=== PATIENT | female | born 1990 | race Caucasian/White ===

== ENCOUNTER 2022-06-01 17:55 | Outpatient (CLI) | payer OTHER ==
[2022-06-01 18:35] VITALS: BP 132/83; PULSE 98; RESP 18; TEMP 97.5
--- NOTE | 2022-06-05 08:26 | P.MSEPDOC ---
Presenting Problems - Arrival Data Date of Arrival on Unit: 06/01/22 Time of Arrival on Unit: 17:55 Mode of Transport: Ambulatory - Complaint OB-Reason for Admission/Chief Complaint: NST Medical History - Information : 2 Para: 0 Term: 0 : 0 Abortions: Spontaneous or Elective: 0 Number of Living Children: 0 - Gestational Age Gestational Age by KATELYNN (wks/days): 33 Weeks and 5 Days - History Complications: GDM Comment: On insulin once daily at bedtime, NST twice weekly Review of Systems - Review of Systems Constitutional: No problems Breast: No problems ENT: No problems Cardiovascular: No problems Respiratory: No problems Gastrointestinal: No problems Genitourinary: No problems Musculoskeletal: No problems Neurological: No problems Skin: No problems Vital Signs - Temperature Temperature: 97.5 F Temperature Source: Temporal Artery Scan - Pulse Right Sitting Brachial Pulse Rate: 98 Pulse Assessment Method: Automatic Cuff - Respirations Respiratory Rate: 18 Oxygen Delivery Method: Room Air O2 Sat by Pulse Oximetry: 98 - Blood Pressure Right Arm Sitting Blood Pressure: 132/83 Blood Pressure Mean: 99 Blood Pressure Source: Automatic Cuff Physician Notification - Physician Notified Physician Notified Date: 06/01/22 Physician Notified Time: 18:35 Physician: Rosenda Monte Order Received: Yes - Notification Comment Comment: Pt with written order for dc home after reactive NST Maternal Triage Index - Maternal Triage Index Presenting for scheduled procedure w/no complaint: Yes - Scheduled/Requesting Priority 5 Scheduled/Requesting Priority 5: Yes Criteria Met for Priority 5: NST twice weekly, reactive today. Disposition - Disposition OB Disposition: Discharge to home Discharge Date: 06/01/22 Discharge Time: 18:32 I agree with the RN Medical Screening Exam: Yes Case reviewed; plan agreed upon as documented in EMR&OBIX.: Yes Diagnosis: GESTATIONAL DIABETES IN , INSULIN CONTROLLED
== END 2022-06-01 18:35 | disposition home or self-care (01) ==
LOC: FBPOP 17:55
PROVIDERS: ATTEND Obstetrics & Gynecology
DX: O24.419 Gestational diabetes mellitus in pregnancy, unspecified control (principal); Z3A.33 33 weeks gestation of pregnancy
CPT/HCPCS: 59025

== ENCOUNTER → 2022-06-08 | Outpatient (CLI) | payer OTHER ==
[2022-06-08 17:49] VITALS: BP 129/80; PULSE 90; RESP 16; TEMP 97.6
--- NOTE | 2022-06-10 09:38 | P.MSEPDOC ---
Presenting Problems - Arrival Data Date of Arrival on Unit: 06/08/22 Time of Arrival on Unit: 16:59 Mode of Transport: Ambulatory - Complaint OB-Reason for Admission/Chief Complaint: NST Comment: with written orders for GDM Medical History - Information : 2 Para: 0 Term: 0 : 0 Abortions: Spontaneous or Elective: 1 Number of Living Children: 0 - Gestational Age Gestational Age by KATELYNN (wks/days): 34 Weeks and 5 Days - History Complications: GDM Review of Systems - Review of Systems Constitutional: No problems Breast: No problems ENT: No problems Cardiovascular: No problems Respiratory: No problems Gastrointestinal: No problems Genitourinary: No problems Musculoskeletal: No problems Neurological: No problems Skin: No problems Vital Signs - Temperature Temperature: 97.6 F Temperature Source: Temporal Artery Scan - Pulse Right Pulse Rate: 90 Pulse Assessment Method: Automatic Cuff - Respirations Respiratory Rate: 16 Oxygen Delivery Method: Room Air O2 Sat by Pulse Oximetry: 98 - Blood Pressure Right Arm Blood Pressure: 129/80 Blood Pressure Mean: 96 Blood Pressure Source: Automatic Cuff Medical Screen Scoring - Assessment - Baby A Baseline FHR: 130 Heart Rate - NICHD Category: Category I (Normal) NST: Reactive Physician Notification - Physician Notified New Order Received: Yes - Notification Comment Comment: Written order to discharge if NST Reactive Maternal Triage Index - Maternal Triage Index Presenting for scheduled procedure w/no complaint: Yes - Scheduled/Requesting Priority 5 Scheduled/Requesting Priority 5: No Disposition - Disposition OB Disposition: Triage, Written follow up instructions reviewed Discharge Date: 06/08/22 Discharge Time: 17:30 I agree with the RN Medical Screening Exam: Yes Case reviewed; plan agreed upon as documented in EMR&OBIX.: Yes Diagnosis: GESTATIONAL DIABETES MELLITUS IN , UNSP CONTROL
== END ==
LOC: FBPOP 16:58
PROVIDERS: ATTEND Obstetrics & Gynecology
DX: O24.419 Gestational diabetes mellitus in pregnancy, unspecified control (principal); Z3A.34 34 weeks gestation of pregnancy
CPT/HCPCS: 59025

== ENCOUNTER 2022-06-16 17:34 | Outpatient (CLI) | payer OTHER ==
--- NOTE | 2022-06-17 17:35 | P.MSEPDOC ---
Presenting Problems - Arrival Data Date of Arrival on Unit: 06/16/22 Time of Arrival on Unit: 17:34 Mode of Transport: Ambulatory - Complaint OB-Reason for Admission/Chief Complaint: NST Comment: pt has weekly nst's due to gest diabetes that is insulin controled Medical History - Information : 2 Para: 0 Term: 0 : 0 Abortions: Spontaneous or Elective: 1 Number of Living Children: 0 - Gestational Age Gestational Age by KATELYNN (wks/days): 35 Weeks and 6 Days Review of Systems - Review of Systems Constitutional: No problems Breast: No problems ENT: No problems Cardiovascular: No problems Respiratory: No problems Gastrointestinal: No problems Genitourinary: No problems Musculoskeletal: No problems Neurological: No problems Skin: No problems Medical Screen Scoring - Assessment - Baby A Baseline FHR: 140 NST: Reactive Physician Notification - Notification Comment Comment: written order to discharge home if there is a reactive NST Maternal Triage Index - Maternal Triage Index Presenting for scheduled procedure w/no complaint: Yes - Scheduled/Requesting Priority 5 Scheduled/Requesting Priority 5: Yes Criteria Met for Priority 5: pt here for weekly nst due to gest diabestes insulin controlled Disposition - Disposition OB Disposition: Discharge to home, Written follow up instructions reviewed Discharge Date: 06/16/22 Discharge Time: 18:15 I agree with the RN Medical Screening Exam: Yes Case reviewed; plan agreed upon as documented in EMR&OBIX.: Yes Diagnosis: GESTATIONAL DIABETES IN THE PUERPERIUM, DIET CONTROLLED
== END 2022-06-16 18:15 | disposition home or self-care (01) ==
LOC: FBPOP 17:34
PROVIDERS: ATTEND Obstetrics & Gynecology
DX: O24.410 Gestational diabetes mellitus in pregnancy, diet controlled (principal); Z3A.35 35 weeks gestation of pregnancy; Z79.4 Long term (current) use of insulin
CPT/HCPCS: 59025

== ENCOUNTER 2022-06-29 12:47 | Outpatient (CLI) | payer OTHER ==
--- NOTE | 2022-06-30 07:05 | P.MSEPDOC ---
Presenting Problems - Arrival Data Date of Arrival on Unit: 06/29/22 Time of Arrival on Unit: 12:47 Mode of Transport: Ambulatory - Complaint OB-Reason for Admission/Chief Complaint: NST Medical History - Information : 2 Para: 0 Term: 0 : 0 Abortions: Spontaneous or Elective: 0 Number of Living Children: 0 - Gestational Age Gestational Age by KATELYNN (wks/days): 37 Weeks and 5 Days - History Complications: GDM Review of Systems - Review of Systems Constitutional: No problems Breast: No problems ENT: No problems Cardiovascular: No problems Respiratory: No problems Gastrointestinal: No problems Genitourinary: No problems Musculoskeletal: No problems Neurological: No problems Skin: No problems Medical Screen Scoring - Assessment - Baby A Baseline FHR: 145 Heart Rate - NICHD Category: Category I (Normal) NST: Reactive Physician Notification - Notification Comment Comment: orders that if NST is reactive may discharge home Maternal Triage Index - Maternal Triage Index Presenting for scheduled procedure w/no complaint: No - Stat/Priority 1 Stat Priority 1: No - Urgent/Priority 2 Urgent Priority 2: No - Prompt/Priority 3 Prompt Priority 3: No - Non-Urgent/Priority 4 Non-Urgent Priority 4: No - Scheduled/Requesting Priority 5 Scheduled/Requesting Priority 5: Yes Criteria Met for Priority 5: NST orders Disposition - Disposition OB Disposition: Discharge to home Discharge Date: 06/29/22 Discharge Time: 13:22 I agree with the RN Medical Screening Exam: Yes Case reviewed; plan agreed upon as documented in EMR&OBIX.: Yes Diagnosis: SUPERVISION OF HIGH RISK , UNSP, THIRD TRIMESTER
== END 2022-06-29 13:22 | disposition home or self-care (01) ==
LOC: FBPOP 12:47
PROVIDERS: ATTEND Obstetrics & Gynecology
DX: O24.419 Gestational diabetes mellitus in pregnancy, unspecified control (principal); Z3A.37 37 weeks gestation of pregnancy
CPT/HCPCS: 59025

== ENCOUNTER 2022-07-05 17:51 | Outpatient (CLI) | payer OTHER ==
[2022-07-05 18:57] VITALS: BP 133/83; PULSE 86; RESP 16; TEMP 97.1
--- NOTE | 2022-07-06 06:52 | P.MSEPDOC ---
Presenting Problems - Arrival Data Date of Arrival on Unit: 07/05/22 Time of Arrival on Unit: 17:51 Mode of Transport: Ambulatory - Complaint OB-Reason for Admission/Chief Complaint: PIH Medical History - Information : 2 Para: 0 - Gestational Age Gestational Age by KATELYNN (wks/days): 38 Weeks and 4 Days Review of Systems - Review of Systems Constitutional: No problems Breast: No problems ENT: No problems Cardiovascular: No problems Respiratory: No problems Gastrointestinal: No problems Genitourinary: No problems Musculoskeletal: No problems Neurological: No problems Skin: No problems Vital Signs - Temperature Temperature: 97.1 F Temperature Source: Temporal Artery Scan - Pulse Pulse Oximetery Pulse Rate: 86 Pulse Assessment Method: Pulse Oximetry - Respirations Respiratory Rate: 16 Oxygen Delivery Method: Room Air O2 Sat by Pulse Oximetry: 98 - Blood Pressure Right Arm Blood Pressure: 133/83 Blood Pressure Mean: 99 Blood Pressure Source: Automatic Cuff Physician Notification - Physician Notified Physician Notified Date: 07/05/22 Physician Notified Time: 18:16 Physician: Mau Maternal Triage Index - Stat/Priority 1 Stat Priority 1: No - Urgent/Priority 2 Urgent Priority 2: No - Prompt/Priority 3 Prompt Priority 3: No - Non-Urgent/Priority 4 Non-Urgent Priority 4: No - Scheduled/Requesting Priority 5 Scheduled/Requesting Priority 5: Yes Criteria Met for Priority 5: patient sent to triage for high blood pressure at home Disposition - Disposition OB Disposition: Discharge to home Discharge Date: 07/05/22 Discharge Time: 18:57 I agree with the RN Medical Screening Exam: Yes Case reviewed; plan agreed upon as documented in EMR&OBIX.: Yes Diagnosis: RELATED CONDITIONS, UNSPECIFIED, THIRD TRIMESTER (Pt presented with compliants of elevated blood pressure on home BP monitor. Blood pressure was normal 2 days ago at [facility] and also is normal now. No evidence of gestational hypertension or pre-eclampsia. To followup tomorrow as scheduled. )
== END 2022-07-05 18:58 ==
LOC: FBPOP 17:51
PROVIDERS: ATTEND Obstetrics & Gynecology
DX: O26.93 Pregnancy related conditions, unspecified, third trimester (principal); Z3A.38 38 weeks gestation of pregnancy; R03.0 Elevated blood-pressure reading, without diagnosis of hypertension
CPT/HCPCS: 59025; 99215

== ENCOUNTER 2022-07-10 06:15 | Inpatient (IN) | payer OTHER ==
--- NOTE | 2022-07-09 09:44 | P.HPOB ---
History of Present Illness H&P Date: 07/09/22 Chief Complaint: Induction of labor, gestational diabetes This is a 31 y.o. female, 2, para 0, with an estimated date of confinement of 07/15/2022, estimated gestational age of 39-2/7 weeks, who presents for induction of labor. She complains of irregular contractions. has been complicated by gestational diabetes, insulin-controlled. She has been followed by MFM. labs: GC/Chlamydia/Trich-neg Hepatitis B surface antigen-neg Rubella-immune RPR-NR Blood type-O+ Antibody screen-neg HIV-NR Hemoglobin-12.4 Random glucose-75 Toxoplasma-neg Quad-neg 1 hr. GTT-161 3 hr. GTT-abnorma GBS-neg OB Hx: . 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 Works at [employer]. Review of Systems Constitutional: Denies chills, Denies fever Eyes: denies blurred vision, denies pain Ears, nose, mouth and throat: Denies headache, Denies sore throat Cardiovascular: Denies chest pain, Denies shortness of breath Respiratory: Denies cough Gastrointestinal: Reports abdominal pain (irregular contractions) Genitourinary: Reports pelvic pain, Reports Musculoskeletal: Reports low back pain Integumentary: Denies pruritus, Denies rash Neurological: Denies numbness, Denies weakness Psychiatric: Denies anxiety, Denies depression Past Medical History Additional Past Medical History / Comment(s): Gestational diabetes; chronic low back pain History of Any Multi-Drug Resistant Organisms: MRSA Date of last positivie culture/infection: 2005 MDRO Source:: left and right axilla Past Surgical History: No Surgical Hx Reported Additional Past Surgical History / Comment(s): D&C, I&D right armpit Past Psychological History: No Psychological Hx Reported Smoking Status: Never smoker Past Alcohol Use History: Occasional Past Drug Use History: Marijuana (History prior to ) - Past Family History Mother Family Medical History: Thyroid Disorder Father Family Medical History: Diabetes Mellitus Medications and Allergies Home Medications Medication Instructions Recorded Confirmed Type Vit No.179/Iron/Folic 1 each PO DAILY 06/01/22 07/05/22 History [ Tablet] INSULIN LISPRO (humaLOG) [humaLOG] 10 units SQ HS 06/08/22 07/05/22 History Allergies Allergy/AdvReac Type Severity Reaction Status Date / Time No Known Allergies Allergy Verified 06/16/22 17:56 Exam Osteopathic Statement: *. No significant issues noted on an osteopathic structural exam other than those noted in the History and Physical/Consult. HEENT: within normal limits Heart: regular rate and rhythm Lungs: clear to auscultation bilaterally Abdomen: Cervix: 1 cm/60%/-2 heart tones: 130's by doppler Extremities: negative Catracho's Assessment and Plan (1) 39 weeks gestation of Status: Acute Code(s): Z3A.39 - 39 WEEKS GESTATION OF SNOMED Code(s): 56737246 (2) Gestational diabetes Status: Acute Code(s): O24.419 - GESTATIONAL DIABETES MELLITUS IN , UNSP CONTROL SNOMED Code(s): 33870266 Plan: Proceed with oxytocin induction of labor. Expectant management. Epidural anesthesia if desired. Glucose monitoring.
[2022-07-10] MEDS ORDERED: LIDOCAINE 1% (10MG/ML) FOR IV START INTRADERMA PRN (06:31)
[2022-07-10] MEDS ORDERED: LIDOCAINE 0.5% (PF) 5 MG/ML (50 ML SDV) SQ PRN (06:31)
[2022-07-10] MEDS ORDERED: TERBUTALINE 1 MG/ML VIAL SQ PRN (06:31)
[2022-07-10] MEDS ORDERED: METHYLERGONOVINE 0.2 MG/ML 1 ML AMP IM PRN (06:31)
[2022-07-10] MEDS ORDERED: OXYTOCIN 10 UNIT/ML 1 ML VIAL IM PRN (06:31)
[2022-07-10] MEDS ORDERED: CARBOPROST TROMETHAMINE 250 MCG/ML 1 ML AMP IM PRN (06:31)
[2022-07-10] MEDS: LACTATED RINGERS 1,000 ML IV SCH ×3 (06:42→16:23)
[2022-07-10 06:44] LABS: Glucose,Whole Blood 107 mg/dL (70-110)
[2022-07-10] MEDS: OXYTOCIN 30 UNITS/500 ML NS 30 UNIT in SALINE 1 500ML.BAG IV SCH ×2 (07:00→20:45)
[2022-07-10 07:04] LABS: Basophils % (A) 0 %; Eosinophils # (A) 0.1 k/uL (0-0.7); Eosinophils % (A) 1 %; HCT 34.2 % (34.0-46.0); HGB 11.4 gm/dL (11.4-16.0); Lymphocytes % (A) 25 %; MCH 28.7 pg (25.0-35.0); MCHC 33.4 g/dL (31.0-37.0); Mean Platelet Volume 11.1; Monocytes # (A) 0.5 k/uL (0-1.0); Monocytes % (A) 6 %; Neutrophils # (A) 5.2 k/uL (1.3-7.7); Neutrophils % (A) 65 %; Platelet Count 219 k/uL (150-450); RBC 3.97 m/uL (3.80-5.40); RDW 14.6 % (11.5-15.5); WBC 7.9 k/uL (3.8-10.6)
[2022-07-10 08:34] LABS: Glucose,Whole Blood 91 mg/dL (70-110)
[2022-07-10 10:34] LABS: Glucose,Whole Blood 95 mg/dL (70-110)
[2022-07-10] MEDS ORDERED: ROPIVACAINE 5 MG/ML 20 ML AMPULE ONE (12:44)
[2022-07-10] MEDS ORDERED: fentaNYL (PF) 50 MCG/ML 5 ML AMP ONE (12:44)
[2022-07-10] MEDS ORDERED: SODIUM CHLORIDE 0.9% 100 ML BAG ONE (12:44)
[2022-07-10 13:02] LABS: Glucose,Whole Blood 74 mg/dL (70-110)
[2022-07-10 15:19] LABS: Glucose,Whole Blood 61 mg/dL (70-110)
[2022-07-10 16:38] LABS: Glucose,Whole Blood 52 mg/dL (70-110)
[2022-07-10] MEDS ORDERED: DEXTROSE 5%-LACTATED RINGERS 1,000 ML IV SCH (16:45)
[2022-07-10 18:16] LABS: Glucose,Whole Blood 83 mg/dL (70-110)
--- NOTE | 2022-07-10 19:41 | P.PROBDLV ---
Vaginal Delivery Note - . Vaginal Delivery Note: The patient progressed to complete dilation after oxytocin induction of labor and artificial rupture membranes with clear fluid noted. She did receive epidural anesthesia. Her blood sugars had been fairly normal through the up until the last couple hours and then she did dip to approximately 52. At this time she was given some D5LR the did bring her sugar back up. Once reaching complete, she began pushing. She pushed for a little over 2 hours and brought infant's head to a crown. At this time she did start having decelerations down to the 60s with pushing. While the baby was at a crown, perineum was anesthetized with 1% lidocaine and a small episiotomy was cut. With one further push, the infant's head delivered across the perineum followed by the anterior shoulder. Nuchal cord times one was doubly clamped and cut and reduced around the infant's head. With one remaining push, the remainder the delivered and was placed on mother's abdomen. Nose and mouth were bulb suctioned. was then taken to warmer for evaluation. A viable male was noted with scores of 8 at 1 minute and 9 at 5 minutes and weight of 8 lbs. 14 oz. Placenta delivered shortly thereafter, intact, with a three-vessel cord. Marginal cord insertion was noted. Uterus initially did contract after oxytocin was given but then became boggy. Oxytocin was opened up and uterus again did contract. Several clots were removed from the intrauterine cavity. Bladder was also drained. Inspection of the perineum revealed a midline episiotomy with no further extension. The area was anesthetized with 1% lidocaine and then sutured with 3-0 and 2-0 Vicryl suture in the usual multilayer fashion. At this time uterus was still noted to be slightly boggy and several more clots were expressed from the uterus. Methergine 0.2 mg was given IM and uterus did feel like it firmed up much better. Once clots were removed no active bleeding was noted. Total estimated blood loss at this point is approximately 600 mL's. Mother and are in stable condition.
[2022-07-10] MEDS ORDERED: ACETAMINOPHEN TAB 325 MG TAB PO PRN (20:23)
[2022-07-10] MEDS ORDERED: diphenhydrAMINE 25 MG CAP PO PRN (20:23)
[2022-07-10] MEDS ORDERED: SIMETHICONE 80 MG CHEWABLE PO PRN (20:23)
[2022-07-10] MEDS ORDERED: diphenhydrAMINE 50 MG CAP PO PRN (20:23)
[2022-07-10] MEDS ORDERED: diphenhydrAMINE 50 MG/ML 1 ML VIAL IVP PRN ×2 (20:23)
[2022-07-10] MEDS ORDERED: LANOLIN CREAM 5 GM TUBE TOPICAL PRN (20:23)
[2022-07-10] MEDS ORDERED: BENZOCAINE/MENTHOL SPRAY 1 GM/SPRAY AEROSOL TOPICAL PRN (20:23)
[2022-07-10] MEDS ORDERED: HYDROCORTISONE 2.5% RECTAL CREAM 30 GM TUBE RECTAL PRN (20:23)
[2022-07-10] MEDS ORDERED: ZOLPIDEM 5 MG TAB PO PRN (20:23)
[2022-07-10] MEDS ORDERED: INFLUENZA VACC (6 MOS-64 YRS) 60 MCG/0.5 ML SYRINGE IM ONE (20:24)
[2022-07-10] MEDS ORDERED: OXYTOCIN 30 UNITS/500 ML NS 30 UNIT in SALINE 1 500ML.BAG IV SCH (20:30)
[2022-07-10] MEDS: IBUPROFEN 600 MG TAB PO PRN (21:18)
[2022-07-10] MEDS: SENNOSIDES-DOCUSATE SODIUM 1 EACH TAB PO SCH (22:17)
[2022-07-11] MEDS: IBUPROFEN 600 MG TAB PO PRN ×3 (05:44→17:32)
[2022-07-11 07:28] LABS: Basophils % (A) 0 %; Eosinophils % (A) 0 %; HCT 26.8 % (34.0-46.0); Hypochromasia Slight; Lymphocytes # (A) 1.7 k/uL (1.0-4.8); Lymphocytes % (A) 13 %; MCH 28.8 pg (25.0-35.0); MCHC 33.1 g/dL (31.0-37.0); Mean Platelet Volume 11.6; Monocytes # (A) 0.5 k/uL (0-1.0); Monocytes % (A) 4 %; Neutrophils # (A) 10.3 k/uL (1.3-7.7); Neutrophils % (A) 80 %; Platelet Count 179 k/uL (150-450); RBC 3.08 m/uL (3.80-5.40); RDW 15.2 % (11.5-15.5); WBC 12.8 k/uL (3.8-10.6)
[2022-07-11 07:38] LABS: HGB 8.9 gm/dL (11.4-16.0)
[2022-07-11] MEDS: SENNOSIDES-DOCUSATE SODIUM 1 EACH TAB PO SCH (08:13)
[2022-07-11] MEDS: LACTATED RINGERS 1,000 ML IV SCH (08:15)
[2022-07-11 08:25] VITALS: RESP 17
--- NOTE | 2022-07-11 12:17 | P.DS ---
Providers Date of admission: 07/10/22 06:27 Expected date of discharge: 07/11/22 Attending physician: Rosenda Monte Primary care physician: Stated None - Discharge Diagnosis(es) (1) 39 weeks gestation of Current Visit: No Status: Acute (2) Gestational diabetes Current Visit: No Status: Acute Hospital Course: A 31-year-old female 2 para 0 at 39-2/7 weeks who presented for induction of labor. She underwent oxytocin induction of labor and delivered vaginally a viable male infant on 07/10/2022 with scores of 8 at 1 minute and 9 at 5 minutes and weight of 8 lbs. 14 oz. Her course has been essentially uncomplicated. Her lochia has been decreasing. Her pain is been fairly well-controlled. She is breast-feeding. Vital signs are stable. Abdomen is soft with fundus firm and nontender. Extremities show negative Homans. Impression is status post vaginal delivery day #1. Plan is to discharge home later today. Routine instructions are given. She is advised to follow up in the office in 6 weeks for a check. She is advised to call the office if she has any further questions or concerns prior to her appointment time. She will be given a prescription for ibuprofen. She has a breast pump at home. Procedures: Oxytocin induction of labor Spontaneous vaginal delivery of a viable male on 07/10/2022 Patient Condition at Discharge: Stable Plan - Discharge Summary New Discharge Prescriptions: New Ibuprofen [Motrin] 600 mg PO Q6HR PRN #60 tab PRN Reason: Mild Pain (Scale 1 To 3) Continue Vit No.179/Iron/Folic [ Tablet] 1 each PO DAILY No Action INSULIN LISPRO (humaLOG) [humaLOG] 10 units SQ HS Discharge Medication List Vit No.179/Iron/Folic [ Tablet] 1 each PO DAILY 06/01/22 [History] INSULIN LISPRO (humaLOG) [humaLOG] 10 units SQ HS 06/08/22 [History] Ibuprofen [Motrin] 600 mg PO Q6HR PRN #60 tab 07/11/22 [Rx] Follow up Appointment(s)/Referral(s): Rosenda Monte DO [Doctor of Osteopathic Medicine] - 08/21/22 11:15 am (PP 08/21/2022 11:15 Am) Activity/Diet/Wound Care/Special Instructions: Instructions 1. Do not begin any exercise program for 3 weeks. 2. Do not resume sexual relations for 3 weeks or longer if uncomfortable. 3. You may take tub baths or showers at any time. 4. You may use tampons if desired after 3 weeks. 5. Keep the area of episiotomy (stitches) clean and dry. 6. If you are not nursing, wear a good fitting, supportive bra during the day and limit fluid intake for at least 1 week to prevent breast engorgement. 7. Call the office, [phone], within the next week to make appointment for your 6 week checkup if it has not already been made. 8. Report any of the following occurrences to the doctor promptly: a. Heavy, excessive bleeding b. Chills, fever c. Burning or frequency of urination d. Pain or redness and breasts if nursing e. Increasing pain or swelling in episiotomy (stitches). In addition to the above instructions, the following additional should be followed: 1. No heavy lifting or straining (exercising) until after 6 week checkup. 2. Keep abdominal incision clean and dry: You may wear a dressing if more comfortable. 3. Make office appointment for 10 days after going home or as instructed by her doctor. Discharge Disposition: HOME SELF-CARE
[2022-07-11 16:19] VITALS: BP 116/72; PULSE 90; TEMP 97.9
== END 2022-07-11 20:10 | disposition home or self-care (01) | DRG 807 ==
LOC: 4FBP 06:27
PROVIDERS: ADMIT Obstetrics & Gynecology; ATTEND Obstetrics & Gynecology
PROC: 10E0XZZ Delivery of Products of Conception, External Approach (ICD-10-PCS; principal; 2022-07-10)
PROC: 4A0HXCZ Measurement of Products of Conception, Cardiac Rate, External Approach (ICD-10-PCS; 2022-07-10)
PROC: 0W8NXZZ Division of Female Perineum, External Approach (ICD-10-PCS; 2022-07-10)
PROC: 3E033VJ Introduction of Other Hormone into Peripheral Vein, Percutaneous Approach (ICD-10-PCS; 2022-07-10)
DX: O24.424 Gestational diabetes mellitus in childbirth, insulin controlled (principal); Z37.0 Single live birth; O76 Abnormality in fetal heart rate and rhythm complicating labor and delivery; O69.81X0 Labor and delivery complicated by cord around neck, without compression, not applicable or unspecified; O43.123 Velamentous insertion of umbilical cord, third trimester; Z3A.39 39 weeks gestation of pregnancy; O26.893 Other specified pregnancy related conditions, third trimester; G89.29 Other chronic pain; M54.50 Low back pain, unspecified; Z87.59 Personal history of other complications of pregnancy, childbirth and the puerperium; Z86.14 Personal history of Methicillin resistant Staphylococcus aureus infection
CPT/HCPCS: 83036; 85025; 86850; 86900; 86901; 90471; 90686

== ENCOUNTER → 2022-09-23 | Outpatient (CLI) | payer OTHER ==
[2022-09-23 16:43] LABS: Basophils # (A) 0.05 X 10*3/uL (0.00-0.10); Basophils % (A) 0.6 %; Eosinophils # (A) 0.16 X 10*3/uL (0.04-0.35); Eosinophils % (A) 1.9 %; HCT 39.3 % (37.2-46.3); HGB 11.9 g/dL (12.0-15.0); Immature Grans, Automated 1.1 %; Lymphocytes # (A) 2.24 X 10*3/uL (0.90-5.00); Lymphocytes % (A) 26.8 %; MCHC 30.3 g/dL (32.0-37.0); MCV 89.3 fL (80.0-97.0); Mean Platelet Volume 10.8 fL (9.5-12.2); Monocytes # (A) 0.51 X 10*3/uL (0.20-1.00); Monocytes % (A) 6.1 %; NRBC Per 100 WBC 0 /100 WBCS (0.0-0.0); Neutrophils # (A) 5.31 X 10*3/uL (1.80-7.70); Neutrophils % (A) 63.5 %; Platelet Count 265 X 10*3/uL (140-440); RDW 14.6 % (11.5-14.5); WBC 8.36 X 10*3/uL (4.50-10.00)
== END | disposition home or self-care (01) ==
LOC: LABPAT 09:31
PROVIDERS: ATTEND Obstetrics & Gynecology
DX: Z01.812 Encounter for preprocedural laboratory examination (principal)
CPT/HCPCS: 85025

== ENCOUNTER 2022-09-26 06:23 | Day surgery (SDC) | payer OTHER ==
[2022-09-21 11:28] VITALS: BMI 34.9
--- NOTE | 2022-09-25 21:16 | P.HPOB ---
History of Present Illness H&P Date: 09/25/22 Chief Complaint: Family planning This is a 32-year-old female 2 para 1 who presents for laparoscopic bilateral tubal ligation via fulguration for family planning. She wishes permanent sterilization. She is currently abstinent. She recently delivered a viable male infant vaginally on 07/10/2022. Obstetrical history: . History of 1 termination of and one vaginal delivery at term. Gynecologic history: No history of sexually transmitted diseases. Social history: She is single/. She works full-time at a [employer]. Review of Systems Constitutional: Denies chills, Denies fever Eyes: denies blurred vision, denies pain Ears, nose, mouth and throat: Denies headache, Denies sore throat Cardiovascular: Denies chest pain, Denies shortness of breath Respiratory: Denies cough Gastrointestinal: Denies abdominal pain, Denies diarrhea, Denies nausea, Denies vomiting Genitourinary: Denies dysuria, Denies hematuria Menstruation: Reports amenorrhea Musculoskeletal: Reports low back pain Integumentary: Denies pruritus, Denies rash Neurological: Denies numbness, Denies weakness Psychiatric: Denies anxiety, Denies depression Past Medical History Additional Past Medical History / Comment(s): Hx gestational diabetes, chronic intermittent low back pain, anemia. History of Any Multi-Drug Resistant Organisms: MRSA Date of last positivie culture/infection: 2005 MDRO Source:: left and right axilla Past Surgical History: No Surgical Hx Reported Additional Past Surgical History / Comment(s): D&C, I&D right armpit, wisdom teeth extracted. Past Anesthesia/Blood Transfusion Reactions: No Reported Reaction, Motion Sickness Past Psychological History: No Psychological Hx Reported Smoking Status: Never smoker Past Alcohol Use History: Occasional Past Drug Use History: Marijuana Additional Drug Use History / Comment(s): Marijuana use rarely. - Past Family History Mother Family Medical History: No Reported History, Thyroid Disorder Father Family Medical History: Cancer, Diabetes Mellitus Additional Family Medical History / Comment(s): Bladder cancer. Medications and Allergies Home Medications Medication Instructions Recorded Confirmed Type Vit No.179/Iron/Folic 1 each PO DAILY 06/01/22 09/21/22 History [ Tablet] Ferrous Sulfate [Iron] 325 mg PO DAILY 09/21/22 09/21/22 History Allergies Allergy/AdvReac Type Severity Reaction Status Date / Time No Known Allergies Allergy Verified 09/21/22 11:14 Exam Osteopathic Statement: *. No significant issues noted on an osteopathic structural exam other than those noted in the History and Physical/Consult. HEENT: Within normal limits Heart: Regular rate and rhythm Lungs: Clear to auscultation bilaterally Abdomen: Soft, nontender Pelvic exam: Uterus is anteverted, nontender, with no adnexal masses palpated. Extremities: Negative Homans. Assessment and Plan (1) Family planning Status: Acute Code(s): Z30.09 - ENCOUNTER FOR OT GENERAL CNSL AND ADVICE ON CONTRACEPTION SNOMED Code(s): 105310096 Plan: Proceed with laparoscopic bilateral tubal ligation via fulguration. I have discussed the risks, benefits, and alternative therapies for the above- mentioned procedure and for both sedation/anesthesia as well as necessary blood products administration, if indicated, as they pertain to this patient. The patient has indicated her understanding and acceptance of the risks and procedures discussed.
[~2022-09-26 06:23] MED LIST: DEXAMETHASONE SOD PHOSPHATE 4 MG/ML 1 ML VIAL IV ONE; LIDOCAINE 1% (10MG/ML) FOR IV START INTRADERMA PRN; MIDAZOLAM 2 MG/2 ML VIAL IV PRN; ONDANSETRON 4 MG/2 ML VIAL IVP ONE; Pre Op ABX Message 1 EACH MISC MISCELLANE ONE
[2022-09-26] MEDS ORDERED: LACTATED RINGERS 1,000 ML IV ONE (06:45)
[2022-09-26 06:48] VITALS: RESP 16
[2022-09-26] MEDS ORDERED: HYDROmorphone 0.5 MG/0.5 ML SYRINGE IVP PRN (07:00)
[2022-09-26] MEDS ORDERED: SCOPOLAMINE 1 MG/72 HR PATCH TRANSDERM ONE (07:12)
[2022-09-26] MEDS ORDERED: MIDAZOLAM 2 MG/2 ML VIAL ONE (07:22)
[2022-09-26] MEDS ORDERED: ACETAMINOPHEN IV (For NPO) 1,000 MG/100 ML VIAL ONE (07:22)
[2022-09-26] MEDS ORDERED: PROPOFOL 10 MG/ML 20 ML VIAL IV ONE (07:22)
[2022-09-26] MEDS ORDERED: KETOROLAC 30 MG/ML 1 ML VIAL ONE (07:22)
[2022-09-26] MEDS ORDERED: LIDOCAINE 2% INJ 20 MG/ML (2 ML VIAL) ONE (07:22)
[2022-09-26] MEDS ORDERED: fentaNYL (PF) 50 MCG/ML 2 ML AMP ONE (07:22)
[2022-09-26] MEDS ORDERED: BUPIVACAINE (PF) 0.25% 30 ML VIAL SQ ONE (07:42)
--- NOTE | 2022-09-26 08:04 | P.OP ---
Date of Procedure: 09/26/22 Preoperative Diagnosis: Family planning Postoperative Diagnosis: Same Procedure(s) Performed: Laparoscopic bilateral tubal ligation via fulguration Anesthesia: KEYLA Surgeon: Rosenda Monte Estimated Blood Loss (ml): 3 Pathology: none sent Condition: stable Disposition: same day Indications for Procedure: This is a 32-year-old female 2 para 1 who presents for laparoscopic bilateral tubal ligation via fulguration for family planning. She wishes permanent sterilization. She is currently abstinent. She recently delivered a viable male infant vaginally on 07/10/2022. Operative Findings: Uterus is retroverted, sounded to 8 cm. Normal uterus tubes and ovaries are noted. There are some follicle cyst noted on the left ovary. Appendix is visualized and appears normal. Description of Procedure: The patient is taken to the operating room where she is placed in the dorsal lithotomy position. She is prepped and draped in the normal sterile fashion. Examination is performed under anesthesia. Uterus is found to be in a anteverted position. No adnexal masses were palpated. Next a bivalve speculum was placed in the patient's vagina. A ring forcep was used to grasp the anterior lip of the cervix. The uterus was sounded to 8 cm. The kroner uterine manipulator was then inserted through the cervix and the balloon was inflated. The ring forcep is removed speculum was removed gloves were changed and attentio n was turned to the abdomen. A small stab incision was made with a scalpel in the infraumbilical fold. A 5 mm disposable bladeless trocar was then inserted into the peritoneal cavity under direct visualization. Once inside, pneumoperitoneum was achieved with CO2 gas. The insert was removed and the camera was placed. Intraperitoneal placement was confirmed. No bleeding was noted. Next the patient was placed in Trendelenburg position. A small stab incision was made suprapubically and a 5 mm disposable bladeless trocar was inserted into the peritoneal cavity under direct visualization. Once inside pelvic contents were inspected. Next a bipolar Kleppinger instrument was placed through the inferior trocar and the midportion of each tube was brought away from other structures and completely fulgurated on approximate 2-3 cm segment of each tube. Excellent hemostasis was noted. Pictures were taken. Pneumoperitoneum was released after the inferior trocar was removed under direct visualization. The upper trocar was then removed. The skin incisions were then closed with 4-0 Vicryl suture in a subcuticular fashion. Incisions were then injected with quarter percent Marcaine. Approximately 6 mL were used. Next the kroner uterine manipulator was removed. Minimal bleeding was noted. All sponge and needle counts are correct. The patient is then taken to recovery room in stable condition.
[2022-09-26 08:19] VITALS: TEMP 97.8
[2022-09-26] MEDS: LACTATED RINGERS 1,000 ML IV SCH ×2 (08:49→08:54)
[2022-09-26 09:15] VITALS: BP 127/84; PULSE 54
== END 2022-09-26 10:08 | disposition home or self-care (01) ==
LOC: OR 06:23
PROVIDERS: ATTEND Obstetrics & Gynecology
DX: Z30.2 Encounter for sterilization (principal); N85.8 Other specified noninflammatory disorders of uterus; G89.29 Other chronic pain; D64.9 Anemia, unspecified; Z86.14 Personal history of Methicillin resistant Staphylococcus aureus infection; F10.20 Alcohol dependence, uncomplicated; Z16.35 Resistance to multiple antimicrobial drugs; F12.20 Cannabis dependence, uncomplicated; Z83.3 Family history of diabetes mellitus; Z80.52 Family history of malignant neoplasm of bladder; Z79.83 Long term (current) use of bisphosphonates
CPT/HCPCS: 58670; J2250; J1100; J2405; J3010; J1885; J0131; J2704; J1790; J2001